=== PATIENT | female | born 2000 | race African-American/Black ===

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

== ENCOUNTER 2020-01-05 19:19 | Emergency (ER) | payer OTHER ==
[~2020-01-05] VITALS: Ht 162.6 cm; Wt 59.9 kg
[2020-01-05 19:34] VITALS: Ht 162.6 cm; Wt 59.9 kg
[2020-01-05 20:28] LABS: BASOPHIL % 0.2 % (0-2); PLATELET COUNT 161 x10^3mcL (130-400); RED CELL DISTRIBUTION WIDTH 13.8 % (11.5-14.5)
[2020-01-05 21:08] VITALS: BP 120/66
== END 2020-01-05 21:08 | disposition home or self-care (01) ==
LOC: ED 19:19
PROVIDERS: Emergency Medicine
DX: N93.8 Other specified abnormal uterine and vaginal bleeding (principal)

== ENCOUNTER 2020-03-21 07:53 | Emergency (ER) | payer OTHER ==
[~2020-03-21] VITALS: Ht 162.6 cm; Wt 61.2 kg
[2020-03-21 07:59] VITALS: Ht 162.6 cm; Wt 61.2 kg
[2020-03-21 09:28] VITALS: BP 128/78
== END 2020-03-21 09:28 | disposition home or self-care (01) ==
LOC: ED 07:53
DX: S83.92XA Sprain of unspecified site of left knee, initial encounter (principal); Y04.0XXA Assault by unarmed brawl or fight, initial encounter; Y93.89 Activity, other specified; Y92.89 Other specified places as the place of occurrence of the external cause; Y99.8 Other external cause status
CPT/HCPCS: Q0092

== ENCOUNTER 2020-06-14 18:10 | Emergency (ER) | payer OTHER ==
[~2020-06-14] VITALS: Ht 162.6 cm; Wt 60.8 kg
[2020-06-14 18:31] VITALS: BP 111/61; Ht 162.6 cm; Wt 60.8 kg
== END 2020-06-14 18:47 | disposition home or self-care (01) ==
LOC: ED 18:10
DX: T70.0XXA Otitic barotrauma, initial encounter (principal); X58.XXXA Exposure to other specified factors, initial encounter